=== PATIENT | male | born 1935 | race Caucasian/White ===

== ENCOUNTER 2020-12-17 13:57 | Emergency (ER) | payer MEDICARE, BC ==
--- NOTE | 2020-12-17 14:47 | EDM.PDOC ---
<Tabatha Peralta - Last Filed: 12/17/20 17:46> ED HPI GENERAL MEDICAL PROBLEM - General Chief Complaint: Respiratory Problem Stated Complaint: medical via [place] Time Seen by Provider: 12/17/20 14:25 Source of Information: Reports: Patient, Family History Limitations: Reports: No Limitations - History of Present Illness INITIAL COMMENTS - FREE TEXT/NARRATIVE: 84 year old male with a history of dysphagia presents via ems with due to foreign body in throat. Patient reports that he was eating "chicken drummies" today when he felt that a piece got stuck in his throat. Per patient he could not swallow or breathe. Daughter ended up performing Heimlich maneuver with production of small part of the meat, He reports he could breathe after that but continues to have difficulty with swallowing and was concerned for his airway. EMS reported that the patient was poorly managing his secretions and coughing en route when all of the sudden felt complete resolution. Onset: Today Duration: Minutes: Location: Reports: Other (thoat) Quality: Reports: Other (difficult to breathe ) Improves with: Reports: None Worsens with: Reports: None Associated Symptoms: Reports: No Other Symptoms - Related Data Allergies Allergy/AdvReac Type Severity Reaction Status Date / Time acetaminophen AdvReac Hallucinati Verified 12/17/20 14:05 [From Darvocet-N] ons celecoxib [From Celebrex] AdvReac Hives Verified 12/17/20 14:05 propoxyphene AdvReac Hallucinati Verified 12/17/20 14:05 [From Darvocet-N] ons Home Meds: Home Meds Acetaminophen 500 mg PO ASDIRECTED 12/17/20 [History] Cyanocobalamin (Vitamin B-12) [Vitamin B-12] 1,000 mcg PO ASDIRECTED 12/17/20 [History] Dupilumab [Dupixent Syringe] 300 mg SQ ASDIRECTED 12/17/20 [History] Furosemide 80 mg PO DAILY 12/17/20 [History] Magnesium Oxide [Magnesium] 400 mg PO ASDIRECTED 12/17/20 [History] Metoprolol Succinate 100 mg PO DAILY 12/17/20 [History] Multivitamin 1 each PO DAILY 12/17/20 [History] Nitroglycerin 0.4 mg SL ASDIRECTED 12/17/20 [History] Pantoprazole Sodium [Protonix] 40 mg PO DAILY 12/17/20 [History] Triamcinolone Acetonide [Kenalog 0.1% Crm] 1 applic TOP DAILY 12/17/20 [History] Warfarin [Coumadin] 2.5 mg PO ASDIRECTED 12/17/20 [History] allopurinoL [Zyloprim] 150 mg PO DAILY 12/17/20 [History] amLODIPine [Norvasc] 2.5 mg PO BID 12/17/20 [History] atorvaSTATin [Lipitor] 20 mg PO BEDTIME 12/17/20 [History] Past Medical History HEENT History: Reports: Impaired Vision Cardiovascular History: Reports: Hypertension, OR, Stents Gastrointestinal History: Reports: None Genitourinary History: Reports: Renal Disease Musculoskeletal History: Reports: Gout Endocrine/Metabolic History: Reports: Diabetes, Type II Hematologic History: Reports: Anticoagulation Therapy Dermatologic History: Reports: Other (See Below) - Infectious Disease History Infectious Disease History: Reports: Measles - Past Surgical History Head Surgeries/Procedures: Reports: None HEENT Surgical History: Reports: Cataract Surgery Cardiovascular Surgical History: Reports: Coronary Artery Stent GI Surgical History: Reports: Hernia, Abdominal Endocrine Surgical History: Reports: None Musculoskeletal Surgical History: Reports: Knee Replacement Dermatological Surgical History: Reports: None Social & Family History - Tobacco Use Tobacco Use Status *Q: Former Tobacco User Used Tobacco, but Quit: Yes Month/Year Tobacco Last Used: 1967 Second Hand Smoke Exposure: No - Caffeine Use Caffeine Use: Reports: Tea - Recreational Drug Use Recreational Drug Use: No ED ROS GENERAL - Review of Systems Review Of Systems: See Below Constitutional: Reports: No Symptoms HEENT: Reports: Throat Pain, Other (chicken in esophagus) Respiratory: Reports: Other (coughing and difficulty with breathing while choking) Cardiovascular: Reports: No Symptoms Endocrine: Reports: No Symptoms GI/Abdominal: Reports: No Symptoms : Reports: No Symptoms Musculoskeletal: Reports: No Symptoms Skin: Reports: No Symptoms Neurological: Reports: No Symptoms Psychiatric: Reports: No Symptoms Hematologic/Lymphatic: Reports: No Symptoms Immunologic: Reports: No Symptoms ED EXAM, GENERAL - Physical Exam Exam: See Below Free Text/Narrative:: Patient is awake, alert, and oriented with patent airway. He does not appear to be in any distress. Good color, managing own secretions, breathing normally with regular and non labored respirations. Back of throat appears intact without foreign body, edema, erythema, or bleeding. Lung sounds are clear throughout. Exam Limited By: No Limitations General Appearance: Alert, No Apparent Distress Throat/Mouth: Normal Inspection, No Airway Compromise. No: Dysphagia Head: Atraumatic Neck: Normal Inspection Respiratory/Chest: No Respiratory Distress, Lungs Clear, Normal Breath Sounds, Accessory Muscle Use. No: Respiratory Distress, Stridor Cardiovascular: Normal Peripheral Pulses Extremities: Normal Range of Motion Neurological: Alert, Oriented, Normal Cognition Psychiatric: Normal Affect Skin Exam: Warm, Dry Lymphatic: No Adenopathy Course - Vital Signs Text/Narrative:: Inspection of oral mucous membranes performed without edema, erythema, foreign body, or bleeding. Physical assessment unremarkable, lung sounds clear throughout. The patient feels that he has returned to his baseline and would not like imaging study today. Departure - Departure Time of Disposition: 14:49 Disposition: Home, Self-Care 01 Condition: Good Clinical Impression: Foreign body - Discharge Information Instructions: Swallowed Foreign Body, Adult Referrals: PCP,None [Primary Care Provider] - Forms: ED Department Discharge Care Plan Goals: Please be careful when chewing food, recommend soft diet and close follow up with your swallow study in December. Return to ER with any shortness of breath, if unable to swallow or manage secretions, or any new concerning symptoms. Sepsis Event Note (ED) - Evaluation Sepsis Screening Result: No Definite Risk <Fidel Acevedo - Last Filed: 12/17/20 18:11> Course - Vital Signs Last Recorded V/S: Last Vital Signs Temp 98.1 F 12/17/20 14:11 Pulse 102 H 12/17/20 14:11 Resp 16 12/17/20 14:11 BP 134/81 12/17/20 14:11 Pulse Ox 96 12/17/20 14:11 Sepsis Event Note (ED) - Focused Exam Vital Signs: Vital Signs Temp Pulse Resp BP Pulse Ox 12/17/20 14:11 98.1 F 102 H 16 134/81 96 12/17/20 14:00 98.1 F 102 H 16 134/81 96 Attestation - Student - Attestation Statement Attestation Statement: I personally performed or re-performed the physical examination and medical decision making. I have verified all student documentation or findings, including history, physical exam and/or medical decision making.
== END 2020-12-17 15:02 | disposition home or self-care (01) ==
LOC: JP.ED 13:57
DX: T17.228A Food in pharynx causing other injury, initial encounter (principal); I10 Essential (primary) hypertension; I25.2 Old myocardial infarction; E11.9 Type 2 diabetes mellitus without complications; M10.9 Gout, unspecified; Z88.5 Allergy status to narcotic agent; Z88.6 Allergy status to analgesic agent; Z95.5 Presence of coronary angioplasty implant and graft; Z87.891 Personal history of nicotine dependence; Z79.899 Other long term (current) drug therapy; Z79.01 Long term (current) use of anticoagulants
CPT/HCPCS: 99282; 99284